=== PATIENT | male | born 1940 | race Caucasian/White ===

== ENCOUNTER 2017-01-07 11:39 | Observation (INO) | payer OTHER ==
[~2017-01-07] VITALS: Ht 167.6 cm; Wt 90.0 kg
[2017-01-07] VITALS (7 sets, daily range): BP systolic 92–128; BP diastolic 56–73; PULSE 61–77; RESP 18–20; TEMP 97.6–97.7; O2SAT 94–99
[~2017-01-07 11:39] MED LIST: ASPI325T24; ATEN1TAB73; DICL-86; LORT7.5T3; SYNT25TA; TAB-TAB; XANA1TAB6
[2017-01-07] MEDS ORDERED: SODIUM CHLOR 0.9% 1000 ML INJ 1,000 ML IV ONE ×2 (12:02→14:45)
[2017-01-07] MEDS ORDERED: SODIUM CHLORIDE 0.9% FLUSH 10 ML FLUSH IVF PRN (12:15)
[2017-01-07 12:39] LABS: AUTOMATED NEUTROPHIL # 6.3 TH/MM3 (1.8-7.7); BASOPHIL % 0.3 % (0.0-2.0); EOSINOPHIL # 0.1 TH/MM3 (0-0.4); EOSINOPHIL % 1.5 % (0.0-4.0); HEMATOCRIT 32.1 % (39.0-51.0); HEMO FLAGS DIFF FINAL; LYMPH % 21.8 % (9.0-44.0); MEAN CELL VOLUME 87.6 FL (80.0-100.0); MEAN CORPUSCULAR HEMOGLOBIN 29.2 PG (27.0-34.0); MEAN CORPUSCULAR HGB CONC 33.3 % (32.0-36.0); MONO % 8.6 % (0.0-8.0); NEUT % 67.8 % (16.0-70.0); PLATELET COUNT 162 TH/MM3 (150-450); RED BLOOD COUNT 3.66 MIL/MM3 (4.50-5.90); RED CELL DISTRIBUTION WIDTH 15.1 % (11.6-17.2); WHITE BLOOD COUNT 9.2 TH/MM3 (4.0-11.0)
[2017-01-07] MEDS ORDERED: CHOL1CAP14 PO (12:53)
[2017-01-07] MEDS ORDERED: METF-758 PO (12:53)
[2017-01-07] MEDS ORDERED: PRAZ2CAP PO (12:53)
[2017-01-07] MEDS ORDERED: SIMV40TA PO (12:53)
[2017-01-07] MEDS ORDERED: ATEN25TA PO (12:53)
[2017-01-07] MEDS ORDERED: CIPR-9 PO (12:53)
[2017-01-07] MEDS ORDERED: LISI10TA3 PO (12:53)
[2017-01-07] MEDS ORDERED: OMEP20TA PO (12:53)
[2017-01-07] MEDS ORDERED: LEVO75TA3 PO (12:53)
[2017-01-07] MEDS ORDERED: GABA400C5 PO (12:53)
[2017-01-07] MEDS ORDERED: NOVO7030P2 SQ (12:53)
[2017-01-07] MEDS ORDERED: TRAM50TA PO (12:53)
[2017-01-07] MEDS ORDERED: METH500T3 PO (12:53)
[2017-01-07 12:54] LABS: ALT (GPT) 19 U/L (12-78); ANION GAP 10 MEQ/L (5-15); AST (GOT) 19 U/L (15-37); BICARBONATE 24.4 MEQ/L (21.0-32.0); BLOOD UREA NITROGEN 40 MG/DL (7-18); CHLORIDE 102 MEQ/L (98-107); GLOMERULAR FILTRATION RATE 22 ML/MIN (>89); POTASSIUM 4.5 MEQ/L (3.5-5.1); SODIUM (NA) 136 MEQ/L (136-145)
[2017-01-07 12:59] LABS: ALKALINE PHOSPHATASE 57 U/L (45-117); CREATINE KINASE 335 U/L (39-308); TOTAL BILIRUBIN ADULT 0.3 MG/DL (0.2-1.0)
--- NOTE | 2017-01-07 13:02 | PD ---
HPI Chief Complaint: Syncope/Near-Syncope Time Seen by Provider: 11:51 Travel History International Travel<30 days: No Contact w/Intl Traveler<30days: No Traveled to known affect area: No History of Present Illness HPI 76-year-old male history of hypertension, diabetes mellitus, hyperlipidemia, urinary incontinence, who presents from the urologists office after he had a near syncopal episode. The patient states last night he got lightheaded and passed out. He says at that time he fell and struck his head. He denies any head pain. He does report pain in his left flank. Patient states that he had an episode today where he was at the urologist office and felt very dizzy. At that time they found his blood pressure to be in the 80s. [facility] was called and when they arrived they administered 1 L of IV fluid. They did bring his blood pressure back up into the low 100s. By time he arrived here he was asymptomatic. The patient denies any chest pain chest pressure. There is no reported palpitations. There is no reported short of breath. PFSH Past Medical History Cardiac Catheterization: Yes (2002 - "EVERYTHING OKAY" - NO STENTS) Cerebrovascular Accident: Yes (TIA - 2 MONTHS AGO) Diabetes: Yes Patient Takes Glucophage: Yes Diminished Hearing: No Genitourinary: Yes (URINARY RETENTION) Hypertension: Yes ?: Not Past Surgical History Other Surgery: Yes (DIALATED EVERY COUPLE OF MONTHS D/T URINARY RETENTION.) Social History Alcohol Use: Yes ("A BEER EVERY NOW AND THEN") Tobacco Use: Yes ("A CIGAR EVERY 6 MONTHS") Substance Use: No Allergies-Medications (Allergen,Severity, Reaction): Coded Allergies: No Known Allergies (Verified , 12/02/06) Reported Meds & Prescriptions Reported Meds & Active Scripts Active Reported Metformin HCl ER (Metformin HCl) 1,000 Mg [id number] 1,000 Mg PO BID Lisinopril 10 Mg Tab 10 Mg PO DAILY Levothyroxine (Levothyroxine Sodium) 75 Mcg Tab 75 Mcg PO DAILY Novolin 70-30 Inj (Insulin Human Isoph/Insulin Regular) 1,000 Unit/10 Ml Vial 50 Units SQ BID Gabapentin 400 Mg Cap 400 Cap PO TID Cipro (Ciprofloxacin HCl) 500 Mg Tab 500 Mg PO BID D3 Maximum Strength (Cholecalciferol) 5,000 Unit Cap 1,000 Units PO DAILY Atenolol 25 Mg Tab 12.5 Mg PO DAILY Review of Systems Except as stated in HPI: all other systems reviewed are Neg General / Constitutional: No: Fever, Chills HENT: No: Headaches, Vertigo, Lightheadedness, Neck Pain Cardiovascular: No: Chest Pain or Discomfort, Palpitations Respiratory: No: Cough, Shortness of Breath Gastrointestinal: Positive: Abdominal Pain (left lateral abdominal/flank pain from the fall last night.), No: Nausea, Vomiting Genitourinary: Positive: Incontinence (chronic), Flank Pain (from fall last night), Other (chronic urinary issues) Musculoskeletal: Positive: Pain (left flank from fall), No: Weakness Neurologic: Positive: Syncope (syncope last night.), No: Weakness, Headache ( although he struck his head on the wall last night.) Physical Exam Narrative GENERAL: Well-developed well-nourished male in no acute rest her distress. SKIN: Focused skin assessment warm/dry. HEAD: Atraumatic. Normocephalic. EYES: No scleral icterus. No injection or drainage. ENT: No nasal bleeding or discharge. Mucous membranes pink and moist. NECK: Trachea midline. Supple. CARDIOVASCULAR: Regular rate and rhythm. No murmur appreciated. RESPIRATORY: No accessory muscle use. Clear to auscultation. Breath sounds equal bilaterally. GASTROINTESTINAL: Abdomen soft, non-tender, nondistended. Subjective left flank pain. I do not appreciate a contusion there is no swelling. No rebound or guarding. MUSCULOSKELETAL: No obvious deformities. No clubbing. No cyanosis. No edema. NEUROLOGICAL: Awake and alert. No obvious cranial nerve deficits. Motor grossly within normal limits. Normal speech. PSYCHIATRIC: Appropriate mood and affect; insight and judgment normal. Data Data Last Documented VS Vital Signs Date Time Temp Pulse Resp B/P Pulse Ox O2 Delivery O2 Flow Rate FiO2 01/07/17 16:10 77 18 111/68 99 Room Air Orders Electrocardiogram (01/07/17 12:02) Complete Blood Count With Diff (01/07/17 12:02) Comprehensive Metabolic Panel (01/07/17 12:02) Ckmb (Isoenzyme) Profile (01/07/17 12:02) Troponin I (01/07/17 12:02) Ecg Monitoring (01/07/17 12:02) Iv Access Insert/Monitor (01/07/17 12:02) Oximetry (01/07/17 12:02) Sodium Chloride 0.9% Flush (Ns Flush) (01/07/17 12:15) Sodium Chlor 0.9% 1000 Ml Inj (Ns 1000 M (01/07/17 12:02) Ct Brain W/O Iv Contrast(Rout) (01/07/17 12:47) CKMB (01/07/17 12:14) CKMB% (01/07/17 12:14) Iohexol 350 Inj (Omnipaque 350 Inj) (01/07/17 14:38) Heparin Central Flush (Heparin Central F (01/07/17 14:38) Sodium Chlor 0.9% 1000 Ml Inj (Ns 1000 M (01/07/17 14:45) Ct Abd/Pel W/O Iv Contrast (01/07/17 12:47) Place In Observation (01/07/17 ) Vital Signs (Adult) Q4H (01/07/17 16:41) Activity Oob Ad Siobhan (01/07/17 16:41) Blood Bank Laboratory Professional / Telemetry JAYDE.Q8H (01/07/17 16:41) Intake + Output JAYDE.QSHIFT (01/07/17 16:41) Neuro Checks Q4H (01/07/17 16:41) Sodium Chlor 0.9% 1000 Ml Inj (Ns 1000 M (01/07/17 16:41) Sodium Chloride 0.9% Flush (Ns Flush) (01/07/17 16:45) Sodium Chloride 0.9% Flush (Ns Flush) (01/07/17 21:00) Complete Blood Count With Diff (01/08/17 06:00) Basic Metabolic Panel (Bmp) (01/08/17 06:00) Urinalysis - C+S If Indicated (01/07/17 16:41) Orthostatic Blood Pressure (01/07/17 16:43) Admit Order (Ed Use Only) (01/07/17 16:52) Labs Laboratory Tests Test 01/07/17 12:14 White Blood Count 9.2 TH/MM3 Red Blood Count 3.66 MIL/MM3 Hemoglobin 10.7 GM/DL Hematocrit 32.1 % Mean Corpuscular Volume 87.6 FL Mean Corpuscular Hemoglobin 29.2 PG Mean Corpuscular Hemoglobin 33.3 % Concent Red Cell Distribution Width 15.1 % Platelet Count 162 TH/MM3 Mean Platelet Volume 7.7 FL Neutrophils (%) (Auto) 67.8 % Lymphocytes (%) (Auto) 21.8 % Monocytes (%) (Auto) 8.6 % Eosinophils (%) (Auto) 1.5 % Basophils (%) (Auto) 0.3 % Neutrophils # (Auto) 6.3 TH/MM3 Lymphocytes # (Auto) 2.0 TH/MM3 Monocytes # (Auto) 0.8 TH/MM3 Eosinophils # (Auto) 0.1 TH/MM3 Basophils # (Auto) 0.0 TH/MM3 CBC Comment DIFF FINAL Differential Comment Sodium Level 136 MEQ/L Potassium Level 4.5 MEQ/L Chloride Level 102 MEQ/L Carbon Dioxide Level 24.4 MEQ/L Anion Gap 10 MEQ/L Blood Urea Nitrogen 40 MG/DL Creatinine 2.84 MG/DL Estimat Glomerular Filtration 22 ML/MIN Rate Random Glucose 151 MG/DL Calcium Level 8.7 MG/DL Total Bilirubin 0.3 MG/DL Aspartate Amino Transf 19 U/L (AST/SGOT) Alanine Aminotransferase 19 U/L (ALT/SGPT) Alkaline Phosphatase 57 U/L Total Creatine Kinase 335 U/L Creatine Kinase MB 4.9 NG/ML Creatine Kinase MB % 1.5 % Troponin I 0.02 NG/ML Total Protein 7.0 GM/DL Albumin 3.4 GM/DL [facility] Medical Decision Making Medical Screen Exam Complete: Yes Emergency Medical Condition: Yes Differential Diagnosis Dehydration versus anemia versus cardiac arrhythmia versus metabolic derangement Narrative Course 76-year-old male with history of hypertension, diabetes mellitus, hyperlipidemia , who had a syncopal episode yesterday, presents today after having a near syncopal episode at his urologists office. He was sent here by [facility]. When [facility] arrived they found his blood pressure to be in the 80s. They gave him 1 L of IV fluid which brought his blood pressure back to over 100. His blood pressure then dropped back below 90. He reports dizziness and lightheadedness with ambulation. He states he's been drinking plenty of fluid however his laboratory tests show that he's got acute on chronic kidney injury. The patient has been given 2 further liters of IV fluid. His creatinine has doubled from the last one that we have on record. Even this, I would recommend that we bring him in under observation for gentle rehydration. The concern here is we give him further boluses, he can go into congestive heart failure. I discussed this with the patient and he is amenable. Case was discussed with Dr. Rodriguez who agrees with the observation placement. Diagnosis Primary Impression: Syncope Additional Impressions: [id number] kidney injury Diabetes mellitus Hyperlipidemia Admitting Information Admitting Physician Requests: Observation David Bar MD Jan 07, 2017 13:02
[2017-01-07 13:12] LABS: CKMB 4.9 NG/ML (0.5-3.6)
[2017-01-07] MEDS ORDERED: IOHEXOL 350 MG/ML 10 ML VIAL (for RAD DIAG) IV ONE (14:38)
--- NOTE | 2017-01-07 15:03 | RADRPT ---
EXAM DATE/TIME: 01/07/2017 14:44 [facility] COMPARISON: No previous studies available for comparison. INDICATIONS : Multiple falls. RADIATION DOSE: 56.64 CTDIvol (mGy) MEDICAL HISTORY : Hypertension. Cerebrovascular disease. SURGICAL HISTORY : Non-responsive. ENCOUNTER: Initial ACUITY: 2 days PAIN SCALE: 0/10 LOCATION: cranial TECHNIQUE: Multiple contiguous axial images were obtained of the head. Using automated exposure control and adj ustment of the mA and/or kV according to patient size, radiation dose was kept as low as reasonably a chievable to obtain optimal diagnostic quality images. DICOM format image data is available electro nically for review and comparison. FINDINGS: CEREBRUM: Moderate diffuse cerebral volume loss The ventricles are normal for degree of atrophy.. No evidence of midline shift, mass lesion, hemorrhage or acute infarction. No extra-axial fluid collections are seen. POSTERIOR FOSSA: The cerebellum and brainstem are intact. The 4th ventricle is midline. The cerebellopontine angle i s unremarkable. EXTRACRANIAL: The visualized portion of the orbits is intact. Right-sided deviation of the nasal septum. SKULL: The calvaria is intact. No evidence of skull fracture. CONCLUSION: 1. Senescent changes. 2. No acute intracranial abnormality. Oswaldo Martinez MD on January 07, 2017 at 15:00 Board Certified Radiologist. This report was verified electronically.
--- NOTE | 2017-01-07 15:13 | RADRPT ---
EXAM DATE/TIME: 01/07/2017 14:49 [facility] COMPARISON: No previous studies available for comparison. INDICATIONS : Left flank pain status post fall last night. ORAL CONTRAST: No oral contrast ingested. RADIATION DOSE: 16.50 CTDIvol (mGy) MEDICAL HISTORY : Hypertension. Cerebrovascular disease. SURGICAL HISTORY : None. ENCOUNTER: Initial ACUITY: 2 days PAIN SCALE: 5/10 LOCATION: Left flank TECHNIQUE: Volumetric scanning of the abdomen and pelvis was performed. Using automated exposure control and ad justment of the mA and/or kV according to patient size, radiation dose was kept as low as reasonably achievable to obtain optimal diagnostic quality images. DICOM format image data is available electro nically for review and comparison. FINDINGS: LOWER LUNGS: Minimal bibasilar atelectasis. LIVER: Homogeneous density without lesion. There is no dilation of the biliary tree. No calcified gallston es. SPLEEN: Normal size without lesion. PANCREAS: Within normal limits. KIDNEYS: Punctate calcified density in the superior pole of the right kidney may reflect a small calyceal calc ulus. Otherwise, kidneys are symmetrical in size without evidence for hydronephrosis or gross contour deforming abnormality. No perinephric fluid collection or stranding. ADRENAL GLANDS: Within normal limits. VASCULAR: There is no aortic aneurysm. BOWEL/MESENTERY: The stomach, small bowel, and colon demonstrate no acute abnormality. There is no free intraperitone al air or fluid. Normal appendix. ABDOMINAL WALL: Within normal limits. RETROPERITONEUM: There is no lymphadenopathy. BLADDER: No wall thickening or mass. REPRODUCTIVE: Prostate is nonspecifically enlarged and contains coarse calcifications. INGUINAL: There is no lymphadenopathy or hernia. MUSCULOSKELETAL: No acute fracture or focal bony destruction. CONCLUSION: 1. No CT evidence for acute injury in the abdomen or pelvis. 2. Very subtle punctate calcification in the superior pole of right kidney may reflect a punctate josue yceal calculus. No evidence for obstructive uropathy. Oswaldo Martinez MD on January 07, 2017 at 15:02 Board Certified Radiologist. This report was verified electronically.
[2017-01-07] MEDS ORDERED: SODIUM CHLOR 0.9% 1000 ML INJ 1,000 ML IV SCH (16:41)
[2017-01-07] MEDS ORDERED: SODIUM CHLORIDE 0.9% FLUSH 10 ML FLUSH IV FLUSH PRN (16:45)
[2017-01-07] MEDS ORDERED: cefTRIAXone INJ 1,000 MG in SODIUM CHLORIDE 0.9% INJ 100 ML IV ONE (17:00)
--- NOTE | 2017-01-07 17:16 | EKG ---
Date Performed: 01/07/2017 Time Performed: 12:20:04 PTAGE: 76 years EKG: Sinus rhythm LOW QRS VOLTAGE IN PRECORDIAL LEADS POSSIBLE INFERIOR MYOCARDIAL INFARCTION BORDERLINE ECG No signif icant change from prior electrocardiogram. PREVIOUS TRACING : 12/02/2006 22.52 DOCTOR: Juve De La Torre Interpretating Date/Time 01/07/2017 17:14:51
[2017-01-07] MEDS: SODIUM CHLORIDE 0.9% FLUSH 10 ML FLUSH IV FLUSH SCH (19:55)
[2017-01-07 20:10] LABS: BLOOD, URINE NEG (NEG); COMMENT (UR) CULTURE INDICATED; CULTURE IF INDICATED CULTURE INDICATED; GLUCOSE,URINE NEG (NEG); KETONE, URINE NEG (NEG); MUCUS URINE FEW /lpf (OCC); NITRITE,URINE NEG (NEG); SQUAMOUS EPITHELIAL CELL URINE <1 /hpf (0-5); URINE COLOR LIGHT-YELLOW (YELLW/STRAW)
--- NOTE | 2017-01-07 22:08 | HHI.HP ---
HPI Service [facility] Primary Care Physician [facility] Admission Diagnosis Dehydration, acute on chronic kidney injury, cystitis, Diagnoses: (1) Syncope (2) Atypical chest pain Chief Complaint: Syncope Travel History International Travel<30 Days: No Contact w/Intl Traveler <30 Da: No Traveled to Known Affected Are: No History of Present Illness Written by Corie Smith, acting as scribe for Dr. Cedeno on 01/07/17 at 22:07. The patient is seen in the CDU. Went to outpatient urology appointment, blood pressure was checked and systolic was 87 mmHg Reports dizziness and lightheadedness for "months" Takes blood pressure medicine at home Syncopal episode x 3 about 2 nights ago - like someone turned the "lights out" - diaphoresis occurred earlier that day because he was "in the hot sun" - came home and changed, balance was "off" Denies weakness, unilateral weakness Blood glucose about 120 - 140, never lower than 100 and not higher than 300 Reports chest pain: intermittently across chest - accompanied by shortness of breath, does not radiate, denies nausea or diaphoresis Reports back pain Reports intermittent diarrhea for one month - once or twice a day - light brown in color - no change in odor, no recent antibiotics; denies abdominal pain, nausea, or vomiting. Denies black or red stool, hematuria Denies any recent changes in blood pressure medications Last colonoscopy was 5 years ago - was normal Weight loss of 30 lbs - intentional Last stress test was within the past 6 months in [place] the [facility] - was told "everything's fine" No recent travel or long car trips He is unable to recall the names and doses of his medications Review of Systems Except as stated in HPI: all other systems reviewed are Neg Past Family Social History Past Medical History CAD s/p stents placed x 2 about 2 years ago - [facility] NSB by Dr. Rausch CHF Hypertension Type 2 diabetes mellitus Urethral stricture requiring dilatation Hypothyroidism vs Hyperthyroidism Denies atrial fibrillation, breathing problems, liver problems, kidney disease, DVT, PE, CVA, seizures, cancer, or prostate problems . Past Surgical History Cardiac cath with stenting Urethral dilatation . Reported Medications Reported Meds & Active Scripts Active Reported Metformin HCl ER (Metformin HCl) 1,000 Mg [id number] 1,000 Mg PO BID Lisinopril 10 Mg Tab 10 Mg PO DAILY Levothyroxine (Levothyroxine Sodium) 75 Mcg Tab 75 Mcg PO DAILY Novolin 70-30 Inj (Insulin Human Isoph/Insulin Regular) 1,000 Unit/10 Ml Vial 50 Units SQ BID Gabapentin 400 Mg Cap 400 Cap PO TID Cipro (Ciprofloxacin HCl) 500 Mg Tab 500 Mg PO BID D3 Maximum Strength (Cholecalciferol) 5,000 Unit Cap 1,000 Units PO DAILY Atenolol 25 Mg Tab 12.5 Mg PO DAILY . Allergies: Coded Allergies: No Known Allergies (Verified , 12/02/06) Active Ordered Medications Current Medications Sodium Chloride 2 ml 2 ml UNSCH PRN IVF FLUSH AFTER USING IV ACCESS; Start at 12:15; Stop 01/07/17 at 17:13; Status DC Sodium Chloride (NS 1000 ml Inj) 1,000 ml @ 1,000 mls/hr Q1H ONCE IV Last administered on 01/07/17 12:25; Start 01/07/17 at 12:02; Stop 01/07/17 at 13:01 ; Status DC Iohexol (Omnipaque 350 Inj) 90 ml STK-MED ONCE IV ; Start 01/07/17 at 14:38; Stop 01/07/17 at 14:39; Status DC Heparin Sodium (Porcine) 250 units 250 units STK-MED ONCE IV FLUSH ; Start 01/07 at 14:38; Stop 01/07/17 at 14:39; Status DC Sodium Chloride 1,000 ml @ 999 mls/hr BOLUS ONCE IV Last administered on 01/07 15:06; Start 01/07/17 at 14:45; Stop 01/07/17 at 15:45; Status DC Sodium Chloride (NS 1000 ml Inj) 1,000 ml @ 100 mls/hr Q10H IV Last administered on 01/07/17 17:22; Start 01/07/17 at 16:41 Sodium Chloride (NS Flush) 2 ml UNSCH PRN IV FLUSH FLUSH AFTER USING IV ACCESS ; Start 01/07/17 at 16:45 Sodium Chloride 2 ml 2 ml BID IV FLUSH Last administered on 01/07/17t 19:55; Start 01/07/17 at 21:00 Ceftriaxone Sodium/Sodium Chloride (Rocephin Inj/NS Inj) 100 ml @ 200 mls/hr ONCE ONCE IV ; Start 01/07/17 at 17:00; Stop 01/07/17 at 17:29; Status Cancel . Family History Mother with diabetes mellitus, NE Sister - ; cause uncertain Father with NE . Social History Tobacco: does not smoke but has a history of smoking cigarettes, cigars, and pipe - quit 20 years ago Alcohol: social Illicit Drugs: denies . Physical Exam Vital Signs Vital Signs Date Time Temp Pulse Resp B/P Pulse Ox O2 Delivery O2 Flow Rate FiO2 01/07/17 20:16 97.6 61 20 119/59 94 121/78 128/73 01/07/17 18:45 97.6 64 18 99/56 98 01/07/17 16:10 77 18 111/68 99 Room Air 01/07/17 13:24 69 18 116/66 99 Room Air 01/07/17 12:26 18 99 Room Air 01/07/17 12:26 88 18 98 Room Air 01/07/17 11:54 76 18 92/60 98 Room Air Physical Exam GENERAL: This is an obese elderly male patient, in no apparent distress. Has some memory impairment - poor historian. SKIN: No rashes, ecchymoses or lesions. Cool and dry. HEAD: Atraumatic. Normocephalic. EYES: No scleral icterus. No injection or drainage. ENT: Nose without bleeding, purulent drainage. NECK: Trachea midline. No JVD or lymphadenopathy. CARDIOVASCULAR: Regular rate and rhythm without murmurs, gallops, or rubs. RESPIRATORY: Clear to auscultation. Breath sounds equal bilaterally. No wheezes , rales, or rhonchi. GASTROINTESTINAL: Abdomen soft, non-tender, nondistended. No guarding. MUSCULOSKELETAL: Extremities without clubbing, cyanosis, or edema. No calf tenderness. NEUROLOGICAL: Awake and alert with some memory impairment. Motor and sensory grossly within normal limits. Normal speech. . Laboratory Laboratory Tests Test 01/07/17 01/07/17 12:14 19:16 White Blood Count 9.2 Red Blood Count 3.66 Hemoglobin 10.7 Hematocrit 32.1 Mean Corpuscular Volume 87.6 Mean Corpuscular Hemoglobin 29.2 Mean Corpuscular Hemoglobin 33.3 Concent Red Cell Distribution Width 15.1 Platelet Count 162 Mean Platelet Volume 7.7 Neutrophils (%) (Auto) 67.8 Lymphocytes (%) (Auto) 21.8 Monocytes (%) (Auto) 8.6 Eosinophils (%) (Auto) 1.5 Basophils (%) (Auto) 0.3 Neutrophils # (Auto) 6.3 Lymphocytes # (Auto) 2.0 Monocytes # (Auto) 0.8 Eosinophils # (Auto) 0.1 Basophils # (Auto) 0.0 CBC Comment DIFF FINAL Differential Comment Sodium Level 136 Potassium Level 4.5 Chloride Level 102 Carbon Dioxide Level 24.4 Anion Gap 10 Blood Urea Nitrogen 40 Creatinine 2.84 Estimat Glomerular Filtration 22 Rate Random Glucose 151 Calcium Level 8.7 Total Bilirubin 0.3 Aspartate Amino Transf 19 (AST/SGOT) Alanine Aminotransferase 19 (ALT/SGPT) Alkaline Phosphatase 57 Total Creatine Kinase 335 Creatine Kinase MB 4.9 Creatine Kinase MB % 1.5 Troponin I 0.02 Total Protein 7.0 Albumin 3.4 Urine Color LIGHT-YELLOW Urine Turbidity CLEAR Urine pH 5.0 Urine Specific [place] 1.011 Urine Protein NEG Urine Glucose (UA) NEG Urine Ketones NEG Urine Occult Blood NEG Urine Nitrite NEG Urine Bilirubin NEG Urine Urobilinogen LESS THAN 2.0 Urine Leukocyte Esterase LARGE Urine RBC 5 Urine WBC 33 Urine Squamous Epithelial <1 Cells Urine Mucus FEW Microscopic Urinalysis Comment CULTURE INDICATED Date/Time Procedure Status Source Growth 01/07/17 19:16 Urine Culture Received Urine Clean Catch Pending Result Diagram: 01/07/17 1214 01/07/17 1214 Imaging Last Impressions Head CT [id number]/[id number] Signed Impressions: Service Date/Time: December 14:44 - CONCLUSION: 1. Senescent changes. 2. No acute intracranial abnormality. Oswaldo Martinez MD Abdomen/Pelvis CT [id number] Signed Impressions: Service Date/Time: December 14:49 - CONCLUSION: 1. No CT evidence for acute injury in the abdomen or pelvis. 2. Very subtle punctate calcification in the superior pole of right kidney may reflect a punctate calyceal calculus. No evidence for obstructive uropathy. Oswaldo Martinez MD . Assessment and Plan Problem List: (1) Syncope ICD Code: R55 Status: Acute (2) Atypical chest pain ICD Code: R07.89 Status: Acute (3) Htxvh-wn-aszbyly kidney injury ICD Code: N17.9 Status: Acute (4) Type 2 diabetes mellitus ICD Code: E11.9 Status: Chronic (5) Diarrhea ICD Code: R19.7 Status: Acute (6) Abnormal urinalysis ICD Code: R82.90 Status: Acute Assessment and Plan Syncope - Orthostatic blood pressure - check carotid ultrasound to evaluate for carotid stenosis - check echocardiogram to evaluate structure and function of the heart - consult cardiology - patient sees Dr. Rausch as an outpatient Atypical Chest pain - Serial EKG and cardiac enzymes to r/o ACS - continuous cardiac telemetry to monitor heart rhythm and rate Acute Kidney Injury - no recent labs available for comparison - from 2006 admit for UTI, BUN was 17, Creatinine 1.47, and eGFR 51 - BUN 40, Creatinine 2.84, and eGFR - 22 - was given IVF boluses in ED and in the field for hypotension - will recheck BMP in a.m. and follow results - avoid nephrotoxins - Monitor I and O qshift Type 2 Diabetes Mellitus - Accu-Cheks before meals and at bedtime with low-dose NovoLog sliding scale coverage - Hypoglycemia protocol - Monitor trends and blood glucose readings and adjust treatments as indicated Diarrhea - stool for occult blood, stool for culture Abnormal UA - afebrile, no leukocytosis, no urinary symptoms - will await urine culture and hold empiric treatment with antibiotics DVT prophylaxis - Heparin 5000 units subq q24h This note was transcribed by scribondina [Corie Smith]. I, Dr. Otoniel Cedeno personally performed the history, physical exam, and medical decision making; and confirmed the accuracy of the information in the transcribed note. Authenticated by Dr. Otoniel Cedeno on 01/07/17 at 22:07. Discussed Condition With Patient and RN . Corie Smith Jan 07, 2017 22:07 Otoniel Cedeno MD Jan 12, 2017 07:52
[2017-01-07] MEDS ORDERED: DEXTROSE 50% IN WATER 50 ML VIAL(D50) IV PRN (23:15)
[2017-01-07] MEDS ORDERED: GLUCAGON 1 MG/ML VIAL OTHER PRN (23:15)
[2017-01-07] MEDS ORDERED: PANTOPRAZOLE SOD 20 MG DELAYED RELEASE TAB PO PRN (23:55)
[2017-01-07] MEDS ORDERED: PRAVASTATIN SOD 80 MG TAB PO SCH (23:55)
[2017-01-08 00:15] VITALS: PULSE 56
[2017-01-08] MEDS: HEPARIN SODIUM - SQ 10,000 UNITS/ML VIAL SQ SCH ×2 (00:57→08:00)
[2017-01-08 01:22] LABS: CREATINE KINASE 407 U/L (39-308)
[2017-01-08 01:34] LABS: CKMB 7.2 NG/ML (0.5-3.6)
[2017-01-08 04:25] VITALS: BP 118/75; PULSE 72; RESP 19; TEMP 97.8; O2SAT 99
[2017-01-08 04:33] VITALS: PULSE 60
[2017-01-08 05:14] LABS: BASOPHIL % 0.2 % (0.0-2.0); EOSINOPHIL # 0.2 TH/MM3 (0-0.4); EOSINOPHIL % 2.9 % (0.0-4.0); HEMATOCRIT 31.6 % (39.0-51.0); HEMO FLAGS DIFF FINAL; LYMPH % 27.2 % (9.0-44.0); LYMPHOCYTE # 2.2 TH/MM3 (1.0-4.8); MEAN CELL VOLUME 87.2 FL (80.0-100.0); MEAN CORPUSCULAR HEMOGLOBIN 30.1 PG (27.0-34.0); MEAN CORPUSCULAR HGB CONC 34.5 % (32.0-36.0); NEUT % 60.7 % (16.0-70.0); PLATELET COUNT 139 TH/MM3 (150-450); RED BLOOD COUNT 3.63 MIL/MM3 (4.50-5.90); RED CELL DISTRIBUTION WIDTH 14.6 % (11.6-17.2); WHITE BLOOD COUNT 8.2 TH/MM3 (4.0-11.0)
[2017-01-08] MEDS ORDERED: LEVOTHYROXINE SODIUM 75 MCG TAB PO SCH (06:00)
[2017-01-08 06:28] LABS: ANION GAP 7 MEQ/L (5-15); BICARBONATE 27.6 MEQ/L (21.0-32.0); BLOOD UREA NITROGEN 30 MG/DL (7-18); CHLORIDE 105 MEQ/L (98-107); CREATINE KINASE 310 U/L (39-308); GLOMERULAR FILTRATION RATE 38 ML/MIN (>89); POTASSIUM 4.5 MEQ/L (3.5-5.1); SODIUM (NA) 140 MEQ/L (136-145)
[2017-01-08 06:43] LABS: CKMB 6.6 NG/ML (0.5-3.6)
[2017-01-08] MEDS ORDERED: INSULIN ASPART SUPPLEMENTAL SCALE SQ SCH (07:00)
--- NOTE | 2017-01-08 07:51 | EKG ---
Date Performed: 01/08/2017 Time Performed: 05:31:14 PTAGE: 76 years EKG: Sinus rhythm WITH SINUS ARRHYTHMIA LOW QRS VOLTAGE IN PRECORDIAL LEADS BORDERLINE ECG No significant change from prior electrocardiogram. PREVIOUS TRACING : 01/07/2017 12.20 DOCTOR: Juve De La Torre Interpretating Date/Time 01/08/2017 07:51:21
[2017-01-08 08:41] VITALS: BP_SYST 113; BP_SYST 123; BP_SYST 128; BP_DIAS 64; BP_DIAS 71; BP_DIAS 78; PULSE 66; RESP 12; TEMP 97.3; O2SAT 98
--- NOTE | 2017-01-08 08:45 | RADRPT ---
EXAM DATE/TIME: 01/08/2017 07:43 [facility] COMPARISON: No previous studies available for comparison. INDICATIONS : Syncope. MEDICAL HISTORY : Myocardial infarction. Hypercholesterolemia. Hypertension. CHF. Chest pain. Diabetes. Urinary retenti on. SURGICAL HISTORY : Cardiac cath. ENCOUNTER: Initial ACUITY: 1 day PAIN SCORE: 10 LOCATION: Bilateral neck PEAK SYSTOLIC VELOCITIES (cm/sec): ICA/CCA RATIO: Right: 1.3 Left: 1.0 ICA: Right: 88 Left: 84 CCA: Right: 69 Left: 80 ECA: Right: 71 Left: 119 VERTEBRAL: Right: 36 antegrade Left: 63 antegrade Elevated flow velocities and ICA/CCA ratios have been found to correlate with increased degrees of vessel stenosis, calculated as percentage of diameter relative to a normal segment of distal ICA/CCA FINDINGS: RIGHT CAROTID: No significant stenosis is visualized. The waveforms are within normal limits. LEFT CAROTID: No significant stenosis is visualized. The waveforms are within normal limits. VERTEBRAL ARTERIES: Antegrade flow is seen in both vertebral arteries. MISCELLANEOUS: None. CONCLUSION: No evidence of flow-limiting carotid stenosis. Jin Kaminski MD on January 08, 2017 at 8:43 Board Certified Radiologist. This report was verified electronically.
[2017-01-08] MEDS: SODIUM CHLORIDE 0.9% FLUSH 10 ML FLUSH IV FLUSH SCH (09:00)
[2017-01-08] MEDS ORDERED: CHOLECALCIFEROL (VIT D3) 1000 UNIT TAB PO SCH (09:00)
[2017-01-08] MEDS ORDERED: GABAPENTIN 400 MG CAP PO SCH (09:00)
[2017-01-08] MEDS ORDERED: GABAPENTIN 300 MG CAP PO SCH (09:00)
[2017-01-08] MEDS ORDERED: CIPROFLOXACIN 500 MG TAB PO SCH (09:00)
--- NOTE | 2017-01-08 10:53 | HHI.PR ---
Subjective Remarks Patient feels much better. No complaints of dizziness and no chest pain. Wants to go home. No complaint of lightheadedness. Reports that he felt dehydrated yesterday. Has been drinking and urinating well. No further diarrhea. Objective Vitals Vital Signs Date Time Temp Pulse Resp B/P Pulse Ox O2 Delivery O2 Flow Rate FiO2 01/08/17 08:41 97.3 66 12 123/71 98 128/78 113/64 01/08/17 04:33 60 01/08/17 04:25 97.8 72 19 118/75 99 01/08/17 00:15 56 01/07/17 23:59 97.7 70 20 115/72 98 01/07/17 20:16 97.6 61 20 119/59 94 121/78 128/73 01/07/17 18:45 97.6 64 18 99/56 98 01/07/17 16:10 77 18 111/68 99 Room Air 01/07/17 13:24 69 18 116/66 99 Room Air 01/07/17 12:26 18 99 Room Air 01/07/17 12:26 88 18 98 Room Air 01/07/17 11:54 76 18 92/60 98 Room Air I/O 01/07/17 01/07/17 01/07/17 01/08/17 01/08/17 01/08/17 07:00 15:00 23:00 07:00 15:00 23:00 Output Total 400 ml Balance -400 ml Output Urine Total 400 ml # Voids 1 Result Diagram: 01/08/17 0455 01/08/17 0455 Other Results Item Value Date Time Bedside Blood Glucose 122 mg/dl 01/08/17 0555 Bedside Blood Glucose 109 mg/dl 01/07/17 1931 Item Value Date Time Troponin I LESS THAN 0.02 NG/ML L 01/08/17 0005 Troponin I LESS THAN 0.02 NG/ML L 01/07/17 8088 Objective Remarks GENERAL: This is a well-nourished, well-developed patient, in no apparent distress. CARDIOVASCULAR: Regular rate and rhythm RESPIRATORY: Clear to auscultation. Breath sounds equal bilaterally. No wheezes , rales, or rhonchi. GASTROINTESTINAL: Abdomen soft, non-tender, nondistended. Normal active bowel sounds MUSCULOSKELETAL: Extremities without clubbing, cyanosis, or edema. NEURO: Alert & Oriented x4 to person, place, time, situation. Moves all ext x4 A/P Problem List: (1) Syncope ICD Code: R55 Status: Acute (2) Atypical chest pain ICD Code: R07.89 Status: Acute (3) Palfq-dy-abylblk kidney injury ICD Code: N17.9 Status: Acute (4) Type 2 diabetes mellitus ICD Code: E11.9 Status: Chronic (5) Diarrhea ICD Code: R19.7 Status: Acute (6) Abnormal urinalysis ICD Code: R82.90 Status: Acute Assessment and Plan Syncope - Orthostatic blood pressure are negative and blood pressure remained stable - Carotid ultrasound negative - check echocardiogram to evaluate structure and function of the heartpatient had test completed in results are pending and 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 Atypical Chest pain - Serial EKG and cardiac enzymes to r/o ACS has been negative - continuous cardiac telemetry to monitor heart rhythm and rate Acute Kidney Injury - no recent labs available for comparison - from 2006 admit for UTI, BUN was 17, Creatinine 1.47, and eGFR 51 - BUN 40, Creatinine 2.84, and eGFR - 22 - was given IVF boluses in ED and in the field for hypotensionrenal functions improved with IV fluid hydration. Type 2 Diabetes Mellitus - Accu-Cheks before meals and at bedtime with low-dose NovoLog sliding scale coverage Diarrheatransient and now resolved. May be reason for his dehydration. Abnormal UA raw underlying UTI - afebrile, no leukocytosis, no urinary symptoms - will await urine culture but will send patient home on Cipro. DVT prophylaxis - Heparin 5000 units subq q24h Discharge Planning Discharge patient to home Condition on discharge: Improved Diabetic diet as tolerated Ad Siobhan activity Rx written: Cipro 500 units by mouth twice a day 3 days Follow-up with primary care physician Ethel Rodriguez MD Jan 08, 2017 10:53
[2017-01-08] MEDS ORDERED: CEPH-460 PO (10:56)
--- NOTE | 2017-01-08 10:57 | HHI.DCPOC ---
Discharge Care Plan Diagnosis: (1) Sfmhc-sw-rpurofo kidney injury Goals to Promote Your Health * To prevent worsening of your condition and complications * To maintain your health at the optimal level Directions to Meet Your Goals Take your medications as prescribed Follow your dietary instruction Follow activity as directed Keflex 500 mg by mouth twice a day for 3 days. Stop taking home lisinopril and metformin. Keep your appointments as scheduled Take your immunizations and boosters as scheduled If your symptoms worsen call your PCP, if no PCP go to Urgent Care Center or Emergency Room Smoking is Dangerous to Your Health. Avoid second hand smoke Call the 24-hour hour crisis hotline for domestic abuse at Ethel Rodriguez MD Jan 08, 2017 10:57
--- NOTE | 2017-01-08 23:10 | ECHRPT ---
Indication: syncope CONCLUSIONS Normal left ventricular size. There is assymetric septal hypertrophy. The left atrial size is mildly dilated. There is mild tricuspid valve regurgitation. The estimated pulmonary arterial pressure is _33_ mmHg. The pulmonary valve is not well visualized. BP: 118 / 75 HR: 72 Rhythm: Sinus MEASUREMENTS (Male / Female) Normal Values Technical Quality:Fair 2D ECHO LV Diastolic Diameter PLAX 4.2 cm 4.2 - 5.9 / 3.9 - 5.3 cm LV Systolic Diameter PLAX 3.0 cm IVS Diastolic Thickness 1.4 cm 0.6 - 1.0 / 0.6 - 0.9 cm LVPW Diastolic Thickness 0.9 cm 0.6 - 1.0 / 0.6 - 0.9 cm LV Relative Wall Thickness 0.6 RV Internal Dim ED PLAX 3.9 cm M-MODE Aortic Root Diameter MM 3.6 cm LA Systolic Diameter MM 4.6 cm LA Ao Ratio MM 1.3 AV Cusp Separation MM 2.2 cm DOPPLER MV Area PHT 2.2 cm Mitral E Point Velocity 53.8 cm/s Mitral A Point Velocity 59.7 cm/s Mitral E to A Ratio 0.9 TR Peak Velocity 289.0 cm/s TR Peak Gradient 33.4 mmHg FINDINGS LEFT VENTRICLE Normal left ventricular size. There is assymetric septal hypertrophy. The left ventricular systolic function is normal with an estimated ejection fraction in the range of 60-65%. RIGHT VENTRICLE Normal right ventricular size and systolic function. LEFT ATRIUM The left atrial size is mildly dilated. RIGHT ATRIUM The right atrial size is normal. ATRIAL SEPTUM Normal atrial septal thickness without atrial level shunting by limited color doppler interrogation. AORTA The aortic root and proximal ascending aorta are normal in size on limited imaging. MITRAL VALVE Structurally normal mitral valve. No mitral valve regurgitation. No mitral valve stenosis. AORTIC VALVE Trileaflet aortic valve. No aortic valve regurgitation. No aortic valve stenosis. TRICUSPID VALVE Structurally normal tricuspid valve. There is mild tricuspid valve regurgitation. The estimated pulmonary arterial pressure is _33_ mmHg. PULMONARY VALVE The pulmonary valve is not well visualized. VESSELS The inferior vena cava is normal in size. PERICARDIUM No pericardial effusion. Gigi Day MD (Electronically Signed) Final Date:08 January 2017 23:09
== END 2017-01-08 13:51 | disposition home or self-care (01) ==
LOC: NEPE 11:39 → NEDA 16:54 → NEPGCP 18:29
PROVIDERS: ADMIT Family Medicine; ATTEND Family Medicine
DX: R55 Syncope and collapse (principal); R07.89 Other chest pain; N17.9 Acute kidney failure, unspecified; R19.7 Diarrhea, unspecified; E86.0 Dehydration; N30.90 Cystitis, unspecified without hematuria; R06.02 Shortness of breath; I49.8 Other specified cardiac arrhythmias; I25.10 Atherosclerotic heart disease of native coronary artery without angina pectoris; I11.0 Hypertensive heart disease with heart failure; I50.9 Heart failure, unspecified; E78.5 Hyperlipidemia, unspecified; E11.22 Type 2 diabetes mellitus with diabetic chronic kidney disease; N18.9 Chronic kidney disease, unspecified; J34.2 Deviated nasal septum; R33.9 Retention of urine, unspecified; Z86.73 Personal history of transient ischemic attack (TIA), and cerebral infarction without residual deficits; Z79.899 Other long term (current) drug therapy; Z79.84 Long term (current) use of oral hypoglycemic drugs; Z95.5 Presence of coronary angioplasty implant and graft
CPT/HCPCS: 70450; 74176; 80048; 80053; 81001; 82550; 82552; 82948; 84484; 85025; 87086; 93005; 93306; 93880; 99285; G0378; J1642; J1644; J7030; Q9967

== ENCOUNTER 2017-11-21 19:50 | Emergency (ER) | payer OTHER, MEDICARE ==
[~2017-11-21] VITALS: Ht 170.2 cm; Wt 110.0 kg
[~2017-11-21 19:50] MED LIST changes: -ASPI325T24; -ATEN1TAB73; +ATEN25TA PO; +CEPH-460 PO; +CIPR-9 PO; +D 50CAP2 PO; -DICL-86; +GABA400C5 PO; +LEVO75TA3 PO; -LORT7.5T3; +METH500T3 PO; +NOVO7030P2 SQ; +OMEP20TA93 PO; +PRAZ2CAP PO; +SIMV40TA PO; -SYNT25TA; -TAB-TAB; +TRAM50TA PO; -XANA1TAB6
[2017-11-21 19:59] VITALS: BP 127/67; PULSE 74; RESP 18; TEMP 98.1; O2SAT 96
[2017-11-21] MEDS ORDERED: NABU1TAB37 PO (20:48)
--- NOTE | 2017-11-21 20:49 | PD ---
HPI . Hip pain Chief Complaint: Hip Injury Time Seen by Provider: 20:12 Travel History International Travel<30 days: No Contact w/Intl Traveler<30days: No Traveled to known affect area: No History of Present Illness HPI Patient presents with chief complaint of right hip pain. Onset was 3 days ago. It is atraumatic. It is exacerbated by walking. It is unrelieved by ibuprofen. Pain is rated 5/10. I asked him what specifically brought him in to us about it tonight and he states that it was because our lobby was empty. PFSH Past Medical History Anxiety: Yes Depression: No Heart Rhythm Problems: No Cancer: No Cardiac Catheterization: Yes High Cholesterol: Yes Chest Pain: Yes Congestive Heart Failure: Yes Cerebrovascular Accident: Yes (TIA ) Diabetes: Yes Patient Takes Glucophage: Yes (11/21/2017 1600) Diminished Hearing: No Endocrine: Yes Genitourinary: Yes (URINARY RETENTION) Hypertension: Yes Musculoskeletal: No Neurologic: No Psychiatric: Yes Respiratory: No Thyroid Disease: Yes Tetanus Vaccination: < 5 Years Influenza Vaccination: Yes Past Surgical History Coronary Stent: Yes Other Surgery: Yes (DIALATED EVERY COUPLE OF MONTHS D/T URINARY RETENTION.) Social History Alcohol Use: Yes ("A BEER EVERY NOW AND THEN") Tobacco Use: Yes ("A CIGAR EVERY 6 MONTHS") Substance Use: No Allergies-Medications (Allergen,Severity, Reaction): Coded Allergies: No Known Allergies (Verified Adverse Reaction, Unknown, 11/21/17) Reported Meds & Prescriptions Reported Meds & Active Scripts Active Nabumetone 500 Mg Tab 500 Mg PO BID Keflex (Cephalexin) 500 Mg Cap 500 Mg PO Q12H Reported Tramadol (Tramadol HCl) 50 Mg Tab 50 Mg PO Q4H PRN Simvastatin 40 Mg Tab 40 Mg PO HS Prazosin (Prazosin HCl) 2 Mg Cap 2 Mg PO HS Omeprazole 20 Mg Tab 20 Mg PO DAILY PRN Methocarbamol 500 Mg Tab 1,000 Mg PO TID Levothyroxine (Levothyroxine Sodium) 75 Mcg Tab 75 Mcg PO DAILY Novolin 70-30 Inj (Insulin Human Isoph/Insulin Regular) 1,000 Unit/10 Ml Vial 50 Units SQ BID Gabapentin 400 Mg Cap 400 Cap PO TID Cipro (Ciprofloxacin HCl) 500 Mg Tab 500 Mg PO BID D3 Maximum Strength (Cholecalciferol) 5,000 Unit Cap 1,000 Units PO DAILY Atenolol 25 Mg Tab 12.5 Mg PO DAILY Review of Systems Except as stated in HPI: all other systems reviewed are Neg Physical Exam Narrative GENERAL: Awake and alert and in no acute distress. Ambulatory with a cane which does not appear new. SKIN: Warm and dry. Normal color and turgor. HEAD: Normocephalic/atraumatic. EYES: Pupils are equal. Extraocular movements are intact. NECK: Normal range of motion. Supple. CARDIOVASCULAR: Regular rate and rhythm. RESPIRATORY: Nonlabored respirations. Normal sats. MUSCULOSKELETAL: Atraumatic. Normal muscle tone. He does not have any pain with logrolling of the hip. There is no pain on palpation of the groin of the greater trochanter. He is distally neurovascularly intact. NEUROLOGICAL: A and O 3. Nonfocal. PSYCHIATRIC: Appropriate mood and affect. Data Data Last Documented VS Vital Signs Date Time Temp Pulse Resp B/P (MAP) Pulse Ox O2 Delivery O2 Flow Rate FiO2 11/21/17 19:59 98.1 74 18 127/67 (87) 96 Orders Orders Hip, Uni(Ap&Lat) W Ap Pelvis (11/21/17 20:25) MDM Medical Decision Making Medical Screen Exam Complete: Yes Emergency Medical Condition: Yes Differential Diagnosis Differential diagnosis of joint pain includes but is not limited to arthritis, gout, sprain/strain, fracture, dislocation, bursitis Narrative Course This patient presents with right hip pain. It is atraumatic. It is most likely arthritis. X-ray of the hip is pending. Last Impressions Hip and Pelvis X-Ray 11/21/172024 Signed Impressions: CONCLUSION: No acute findings. 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 Diagnosis Primary Impression: Right hip pain Patient Instructions: General Instructions, Hip Pain (ED) Med/Other Pt SpecificInfo: Prescription(s) given Scripts Nabumetone (Nabumetone) 500 Mg Tab 500 MG PO BID for Pain-Inflammation, #60 TAB 0 Refills Prov: Julia Perez MD 11/21/17 Disposition: 01 DISCHARGE HOME Condition: Stable Julia Perez MD Nov 21, 2017 20:49
--- NOTE | 2017-11-21 21:07 | RADRPT ---
EXAM DATE: 11/21/2017 8:56 PM EDT AGE/SEX: 77 years / Male INDICATIONS: Nontraumatic right hip pain for four days on an ambulatory patient. CLINICAL DATA: This is the patient's initial encounter. Patient reports that signs and symptoms have been present for 4 - 6 days and indicates a pain score of 6/10. MEDICAL/SURGICAL HISTORY: Hypercholesterolemia. Hypertension. Congestive heart failure. None. COMPARISON: No prior exams available for comparison. FINDINGS: Bony structures are intact and in normal alignment. Joints are intact without dislocation or signifi cant arthropathy. Osseous density is normal. Soft tissues are unremarkable. No radiopaque foreign bodies seen. CONCLUSION: No acute findings. 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 Electronically signed by: Smooth Loaiza MD 11/21/2017 9:06 PM EDT
== END 2017-11-21 21:31 | disposition home or self-care (01) ==
LOC: NEPD 19:50
DX: M25.551 Pain in right hip (principal); M16.11 Unilateral primary osteoarthritis, right hip; E11.9 Type 2 diabetes mellitus without complications; E78.00 Pure hypercholesterolemia, unspecified; I11.0 Hypertensive heart disease with heart failure; I50.9 Heart failure, unspecified; Z86.73 Personal history of transient ischemic attack (TIA), and cerebral infarction without residual deficits; Z72.0 Tobacco use; Z79.4 Long term (current) use of insulin; Z79.899 Other long term (current) drug therapy
CPT/HCPCS: 73502; 99283